=== PATIENT | female | born 1995 | race African-American/Black ===

== ENCOUNTER 2016-07-24 05:47 | Emergency (ER) | payer OTHER ==
[~2016-07-24] VITALS: Ht 162.6 cm; Wt 82.0 kg
[~2016-07-24 05:47] MED LIST: ZOFR4TAB3 SL
[2016-07-24 05:49] VITALS: BP 129/76; PULSE 118; RESP 16; TEMP 101.5; O2SAT 96
--- NOTE | 2016-07-24 07:36 | PD ---
HPI Chief Complaint: Cold / Flu Symptoms Time Seen by Provider: 07:20 Travel History International Travel<30 days: No Contact w/Intl Traveler<30days: No Traveled to known affect area: No History of Present Illness HPI The patient was seen and examined in the presence of the nurse. She complains of fever and cough and congestion and runny nose. No vomiting or diarrhea. Symptoms severity is moderate. Duration is 2 days. No alleviating factors. PFSH Past Medical History Medical History: Denies Significant Hx Diminished Hearing: No Immunizations Current: Yes Tetanus Vaccination: < 5 Years Influenza Vaccination: No ?: Not LMP: LAST MONTH Past Surgical History Surgical History: No Previous Surgery Social History Alcohol Use: No Tobacco Use: No Substance Use: No Allergies-Medications (Allergen,Severity, Reaction): Coded Allergies: No Known Allergies (Unverified , 07/24/16) Reported Meds & Prescriptions Reported Meds & Active Scripts Active No Active Prescriptions or Reported Medications Review of Systems General / Constitutional: Positive: Fever, Chills Eyes: No: Visual changes HENT: Positive: Rhinorrhea, Congestion, No: Headaches Cardiovascular: No: Chest Pain or Discomfort Respiratory: Positive: Cough, No: Shortness of Breath Gastrointestinal: No: Abdominal Pain Genitourinary: No: Dysuria Musculoskeletal: No: Pain Skin: No Rash Neurologic: No: Weakness Psychiatric: No: Depression Endocrine: No: Polydipsia Hematologic/Lymphatic: No: Easy Bruising Physical Exam Narrative GENERAL: Well-nourished, well-developed patient in no apparent distress. SKIN: Warm and dry. HEAD: Atraumatic. Normocephalic. EYES: Pupils equal and round. No scleral icterus. No injection or drainage. ENT: No nasal bleeding or discharge. Mucous membranes pink and moist. Throat clear NECK: Trachea midline. No JVD. No meningeal signs CARDIOVASCULAR: Regular rate and rhythm. No murmur appreciated. RESPIRATORY: No accessory muscle use. Clear to auscultation. Breath sounds equal bilaterally. GASTROINTESTINAL: Abdomen soft, non-tender, nondistended. Hepatic and splenic margins not palpable. MUSCULOSKELETAL: No obvious deformities. No clubbing. No cyanosis. No edema. NEUROLOGICAL: Awake and alert. No obvious cranial nerve deficits. Motor grossly within normal limits. Normal speech. PSYCHIATRIC: Appropriate mood and affect; insight and judgment normal. Data Data Last Documented VS Vital Signs Date Time Temp Pulse Resp B/P Pulse Ox O2 Delivery O2 Flow Rate FiO2 07/24/16 09:55 99.1 07/24/16 05:56 16 Room Air 07/24/16 05:49 118 129/76 96 Orders Acetaminophen (Tylenol) (07/24/16 07:45) Ibuprofen (Motrin) (07/24/16 07:45) Influenzae A/B Antigen (07/24/16 07:31) Ed Urine Pregnancytest Poc (07/24/16 07:31) Complete Blood Count With Diff (07/24/16 07:31) Basic Metabolic Panel (Bmp) (07/24/16 07:31) Labs Laboratory Tests Test 07/24/16 07:40 White Blood Count 5.6 TH/MM3 Red Blood Count 4.63 MIL/MM3 Hemoglobin 11.2 GM/DL Hematocrit 34.9 % Mean Corpuscular Volume 75.4 FL Mean Corpuscular Hemoglobin 24.2 PG Mean Corpuscular Hemoglobin 32.1 % Concent Red Cell Distribution Width 16.0 % Platelet Count 265 TH/MM3 Mean Platelet Volume 8.8 FL Neutrophils (%) (Auto) 80.0 % Lymphocytes (%) (Auto) 6.4 % Monocytes (%) (Auto) 11.9 % Eosinophils (%) (Auto) 1.3 % Basophils (%) (Auto) 0.4 % Neutrophils # (Auto) 4.5 TH/MM3 Lymphocytes # (Auto) 0.4 TH/MM3 Monocytes # (Auto) 0.7 TH/MM3 Eosinophils # (Auto) 0.1 TH/MM3 Basophils # (Auto) 0.0 TH/MM3 CBC Comment AUTO DIFF Differential Comment AUTO DIFF CONFIRMED Ovalocytes 1+ Sodium Level 138 MEQ/L Potassium Level 3.7 MEQ/L Chloride Level 106 MEQ/L Carbon Dioxide Level 25.0 MEQ/L Anion Gap 7 MEQ/L Blood Urea Nitrogen 9 MG/DL Creatinine 1.02 MG/DL Estimat Glomerular Filtration 82 ML/MIN Rate Random Glucose 95 MG/DL Calcium Level 8.4 MG/DL [facility] Medical Decision Making Medical Screen Exam Complete: Yes Emergency Medical Condition: Yes Medical Record Reviewed: Yes Differential Diagnosis Influenza, bronchitis, viral syndrome Narrative Course I have reviewed the patient's electronic medical record. Influenza swab is negative I gave her dose of Tylenol and Motrin CBC shows minimal anemia but no leukocytosis Metabolic profile is normal She has no meningeal signs and a soft benign nontender abdomen Urine is negative This patient has a viral syndrome-like picture. I don't see any indication for antibiotics Stable for outpatient follow-up Supportive care discussed Diagnosis Primary Impression: Acute viral syndrome Additional Impression: Bronchitis Additional Instructions: The patient was advised to follow up with their physician and return if they worsen. Med/Other Pt SpecificInfo: Other Scripts No Active Prescriptions or Reported Meds Disposition: 01 DISCHARGE HOME Condition: Stable Bud Russo MD Jul 24, 2016 07:36
[2016-07-24] MEDS ORDERED: ACETAMINOPHEN 500 MG CPLT PO ONE (07:45)
[2016-07-24] MEDS ORDERED: IBUPROFEN 600 MG TAB PO ONE (07:45)
[2016-07-24 07:52] LABS: AUTOMATED NEUTROPHIL # 4.5 TH/MM3 (1.8-7.7); BASOPHIL % 0.4 % (0.0-2.0); EOSINOPHIL # 0.1 TH/MM3 (0-0.4); EOSINOPHIL % 1.3 % (0.0-4.0); HEMATOCRIT 34.9 % (35.0-46.0); LYMPH % 6.4 % (9.0-44.0); LYMPHOCYTE # 0.4 TH/MM3 (1.0-4.8); MEAN CELL VOLUME 75.4 FL (80.0-100.0); MEAN CORPUSCULAR HEMOGLOBIN 24.2 PG (27.0-34.0); MEAN CORPUSCULAR HGB CONC 32.1 % (32.0-36.0); MONO % 11.9 % (0.0-8.0); PLATELET COUNT 265 TH/MM3 (150-450); RED BLOOD COUNT 4.63 MIL/MM3 (4.00-5.30); WHITE BLOOD COUNT 5.6 TH/MM3 (4.0-11.0)
[2016-07-24 07:55] LABS: HEMO FLAGS AUTO DIFF
[2016-07-24 08:07] LABS: POTASSIUM 3.7 MEQ/L (3.5-5.1)
[2016-07-24 08:25] LABS: SCAN/DIFF AUTO DIFF CONFIRMED
[2016-07-24 08:26] LABS: OVALOCYTES 1+ (NORMAL)
[2016-07-24 09:55] VITALS: TEMP 99.1
[2016-07-24 12:00] VITALS: BP 121/81; PULSE 106; RESP 16; TEMP 99; O2SAT 98
== END 2016-07-24 13:16 | disposition home or self-care (01) ==
LOC: NEPE 05:47
DX: B34.9 Viral infection, unspecified (principal); J40 Bronchitis, not specified as acute or chronic
CPT/HCPCS: 80048; 84703; 85025; 87804; 99283